=== PATIENT | male | born 1965 | race Hispanic/Latino ===

== ENCOUNTER 2020-12-20 03:34 | Emergency (ER) | payer OTHER ==
[~2020-12-20] VITALS: Ht 165.1 cm; Wt 76.2 kg
[2020-12-20 05:19] VITALS: BP 141/87
[2020-12-20 08:00] VITALS: BP 149/95
[2020-12-20 08:48] VITALS: BP 120/73
== END 2020-12-20 09:04 | disposition home or self-care (01) ==
LOC: EDH 03:34
DX: J06.9 Acute upper respiratory infection, unspecified (principal); Z20.822 Contact with and (suspected) exposure to COVID-19
CPT/HCPCS: 87635; 99283; C9803